=== PATIENT | male | born 2000 | race African-American/Black ===

== ENCOUNTER 2020-08-17 17:09 | Emergency (ER) | payer MEDICAID, OTHER | END 2020-08-17 18:30 | disposition home or self-care (01) | LOC: NAV ERS 17:09 | DX: S13.9XXA Sprain of joints and ligaments of unspecified parts of neck, initial encounter (principal); S00.93XA Contusion of unspecified part of head, initial encounter; V89.2XXA Person injured in unspecified motor-vehicle accident, traffic, initial encounter | CPT/HCPCS: 70450; 72125 ==